=== PATIENT | female | born 1980 | race Two or more races ===

== ENCOUNTER 2021-08-02 18:37 | Emergency (ER) | payer OTHER ==
[~2021-08-02] VITALS: Ht 154.9 cm; Wt 76.7 kg
[2021-08-02 19:25] VITALS: BP 156/101
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
[2021-08-02] MEDS ORDERED: MAGN296S68 PO (21:08)
[2021-08-02] MEDS ORDERED: CYCL10TA19 PO (21:08)
[2021-08-02] MEDS ORDERED: MAGN296S4 PO (21:08)
== END 2021-08-02 21:11 | disposition home or self-care (01) ==
LOC: ER 18:37
DX: M54.59 Other low back pain (principal); K59.00 Constipation, unspecified; Z88.5 Allergy status to narcotic agent; Z88.8 Allergy status to other drugs, medicaments and biological substances; V89.2XXA Person injured in unspecified motor-vehicle accident, traffic, initial encounter; Y93.I9 Activity, other involving external motion; Y92.89 Other specified places as the place of occurrence of the external cause; Y99.8 Other external cause status
CPT/HCPCS: 72100; 81025; 99283